=== PATIENT | female | born 1965 | race Caucasian/White ===

== ENCOUNTER 2016-05-21 23:45 | Emergency (ER) | payer BC ==
[~2016-05-21] VITALS: Ht 160 cm; Wt 49.9 kg
[2016-05-21] MEDS ORDERED: NKM (23:52)
[2016-05-22] VITALS: BP 98/63
[2016-05-22] MEDS ORDERED: Oxycodone/Acetaminophen 5-325 ORAL ONE (00:15)
[2016-05-22] MEDS ORDERED: TdaP Vaccine 0.5ml Syr IM ONE (00:15)
[2016-05-22] MEDS ORDERED: Bacitracin Oint UD TOPIC ONE (00:15)
[2016-05-22] MEDS ORDERED: IBUPROFEN600 MG ORAL (00:53)
[2016-05-22] MEDS ORDERED: BACITRACIN15 GM TOPIC (00:53)
[2016-05-22] MEDS ORDERED: PERCOCET 5-3251 EACH ORAL (00:53)
[2016-05-22 01:00] VITALS: BP_SYST 98; BP_SYST 99; BP_DIAS 63; BP_DIAS 65
[2016-05-22 03:40] VITALS: BP 99/65
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
== END 2016-05-22 01:00 | disposition home or self-care (01) ==
LOC: EMR 05-22 00:30
DX: T23.202A Burn of second degree of left hand, unspecified site, initial encounter (principal); T31.0 Burns involving less than 10% of body surface; X18.XXXA Contact with other hot metals, initial encounter; Y92.9 Unspecified place or not applicable; Z23 Encounter for immunization
CPT/HCPCS: 90471; 90715; 99284